=== PATIENT | male | born 2000 | race Caucasian/White ===

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

== ENCOUNTER 2025-11-06 01:52 | Emergency (ER) | payer MEDICAID ==
[~2025-11-06] VITALS: Ht 190.5 cm; Wt 66.6 kg
[~2025-11-06 01:52] MED LIST changes: +FLUO-167 PO; +FOLI1TAB27 PO; +HYDR-3686 PO; -IBUP-1984 PO; +MULT-25 PO; +NALT50TA5 PO; +TRAZ-251 PO; +thiamine tablet PO
--- NOTE | 2025-11-06 02:10 | ELECTROCARDIOGRAPH REPORT ---
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 ANURADHA Rivas Measurements Intervals [place] Rate: 169 P: 51 OR: 98 QRS: 120 QRSD: 102 T: 0 QT: 260 QTc: 436 Interpretive Statements narrow complex tachycardia, ? sinus tachycardia Anterior infarct, acute (LAD) Electronically Signed On 11-15-2025 13:19:[address] ANURADHA Rivas Please click the below link to view image of tracing.
[2025-11-06] MEDS: normal saline 1000ml 1,000 ML IV ONE ×2 (02:38→05:35)
--- NOTE | 2025-11-06 02:42 | RADIOLOGY REPORT ---
CHEST RADIOGRAPH INDICATION: CP TECHNIQUE: Single frontal view of the chest was obtained COMPARISON: CHEST,SINGLE VIEW on DOS: 12/16/20 FINDINGS: Lines and Tubes: None Lungs: Clear Pleura: No effusion. No pneumothorax. Cardiomediastinal contours: Unremarkable Bones: Unremarkable IMPRESSION: 1. No acute disease.
--- NOTE | 2025-11-06 02:48 | Physician Documentation ---
History of Present Illness General Chief Complaint: Syncope Stated Complaint: HEAD S/P FALL Time Seen by MD: 02:10 Primary Medical Doctor: Karely Mode of Arrival: POV History of Present Illness Initial Comments This is a 25-year-old gentleman with a prior history of syncope, history of panic attacks, history of daily marijuana consumption, comes in today for evaluation of syncope that occurred couple of hours prior to arrival while he was at work. He states that he developed a panic attack while in the bathroom at work. He subsequently experienced a syncope. He states it happens to him often especially with the hyperventilation. He normally knows the loss of consciousness is in pitting, however does not recall the prodrome today. He did fall down striking his head. He states that he went home, smoked some weed, and only came here at the insistence of his friend. At the time of my examination he complains of dizziness, headache. Denies any chest pain or difficulty breathing. He is aware that his heart is beating very fast. He states that he is still feels scared and anxious. He uses marijuana, specifically denies use of any sympathomimetics such as methamphetamine or cocaine. Medication Reconciliation Allergies: Coded Allergies: No Known Allergies (Unverified , 04/18/13) Scheduled Fluoxetine HCl (Fluoxetine HCl), 20 MG PO DAILY@2100 Folic Acid* (Folic Acid*), 1 MG PO DAILY Hydroxyzine Hcl* (Atarax*), 50 MG PO TID Multivitamin with Folic Acid (Thera Tablet), 1 EACH PO DAILY Naltrexone Hcl (Naltrexone Hcl), 50 MG PO DAILY Trazodone HCl (Trazodone HCl), 50 MG PO HS [thiamine tablet], 100 MG PO BID Past Medical History Past Medical History: Anxiety, Depression Past Surgical History: noncontributory Alcohol Use: None Drug Use: marijuana Lives with: S/O Lives In: Home Review of Systems ROS 10 point review of systems was performed and unless noted above in HPI is negative for acute process/complaint. Physical Exam Physical Exam Vital Signs: Temperature: 98.3, Source: Oral, Heart Rate: 164, Respiratory Rate: 18, BP: 140/86, Pulse Oximetry: 97, Weight: 66.600 Physical Exam GENERAL: Awake, alert, oriented, GCS 15, no apparent distress, non-toxic appearing, answers questions, follows commands appropriately. HEENT: Atraumatic, normocephalic, pupils equal, extraocular muscles intact, sclerae anicteric, mucus membranes moist, oropharynx is clear, no stridor. NECK: supple, full active range of motion, trachea midline, no thyromegaly, no lymphadenopathy, no JVD. CARDIOVASCULAR: regular rate/rhythm, no murmurs/gallops/rubs, Pulses are 2+ in all extremities and symmetric. Capillary refill less than 2 seconds. PULMONARY: Nonlabored, good air movement ,no respiratory distress, speaking in full sentences, clear to auscultation bilaterally, no wheezing, no ronchi, no rales, no accessory muscle use. GASTROINTESTINAL: Soft, non-tender, non-distended, normal active bowel sounds, no organomegaly, no pulsatile masses, no CVA tenderness. NEUROLOGIC: Lucid with normal mental status. Normal facial symmetry. Moves all extremities symmetrically and with purpose. No truncal ataxia. Speech is fluid without evidence of dysarthria or aphasia, no focal deficits appreciated. MUSCULOSKELETAL: There is full range of motion of all extremities. There is no joint pain or joint swelling or joint erythema. There is no muscle pain or tenderness or swelling. EXTREMITIES: warm, well-perfused, no cyanosis, no clubbing, no edema, no acute deformities. Skin: warm, dry, no rashes or lesions, no jaundice, no petechiae orpurpura. No ecchymosis. PSYCHIATRIC: Normal affect, normal insight, normal concentration. Focused exam: [] Progress Results/Orders Results/Orders Orders - CARLYLE SOLOMON DO Chest,Single View (11/06/25 02:02) Monitor (11/06/25 02:02) Saline Lock (11/06/25 02:02) Oxygen (11/06/25 02:02) Ct Head (11/06/25 02:45) Ct Cervical Spine (11/06/25 02:45) Completed Orders - CARLYLE SOLOMON DO Chest,Single View (11/06/25 02:02) BMP (11/06/25 02:02) PBNP (11/06/25 02:02) Electrocardiogram (11/06/25 02:02) Hs Troponin I W Calculations (11/06/25 02:02) Drug Screen, Urine (11/06/25 02:02) Ethanol (11/06/25 02:02) Lorazepam Inj (Ativan Inj) (11/06/25 02:30) Normal Saline 1000ml (0.9% Sodium Chlori (11/06/25 02:30) Ct Head (11/06/25 02:45) Ct Cervical Spine (11/06/25 02:45) Free T4 (11/06/25 02:20) TSH (11/06/25 02:20) Magnesium Sulf-Water 2g/50ml (Magnesium (11/06/25 04:35) Potassium Bicarb/Cit Acid Tab (K-Lyte Ta (11/06/25 04:35) Potassium Cl 10meq/100ml Bag (Potassium (11/06/25 04:35) Potassium Bicarb/Cit Acid Tab (K-Lyte Ta (11/06/25 04:35) Normal Saline 1000ml (0.9% Sodium Chlori (11/06/25 04:40) Potassium Cl Sr Tablet (K-Dur Tablet) (11/06/25 05:47) Potassium Bicarb/Cit Acid Tab (K-Lyte Ta (11/06/25 06:15) CMP (11/06/25 10:05) Vital Signs 11/06/25 11/06/25 11/06/25 06:06 06:41 07:54 Temp 98.3 Pulse 99 92 Resp 18 14 B/P (MAP) 123/75 (91) 123/83 (96) Pulse Ox 97 99 O2 Flow Rate 0 FiO2 21 Laboratory Tests Test 11/06/25 02:06 11/06/25 02:20 11/06/25 03:30 11/06/25 04:50 Glucometer 135 H CBC Comment Sodium Level 141 Potassium Level 2.7 *L Chloride Level 100 Carbon Dioxide Level 27.6 Anion Gap 13 Blood Urea Nitrogen 8 Creatinine 1.08 Estimated GFR/1.73 m2 85 BUN/Creatinine Ratio 7.4 L Glucose Level 132 H Calcium Level 9.8 Troponin I High Sensitivity < 4 L Troponin I High Sens Percent Delta Troponin I Hi Sens Absolute Change Pro-B-Type Natriuretic Peptide < 30 Albumin 5.0 Thyroid Stimulating Hormone (TSH) 1.18 Free Thyroxine 1.28 Chemistry Comments Ethyl Alcohol Level 62 H White Blood Count 6.9 Red Blood Count 4.91 Hemoglobin 15.5 Hematocrit 44.2 Mean Corpuscular Volume 90.0 Mean Corpuscular Hemoglobin 31.5 H Mean Corpuscular Hemoglobin Concent 35.0 Red Cell Distribution Width 13.2 Platelet Count 211 Mean Platelet Volume 7.7 Neutrophils (%) (Auto) 67.7 Lymphocytes (%) (Auto) 21.6 Monocytes (%) (Auto) 9.0 Eosinophils (%) (Auto) 0.7 Basophils (%) (Auto) 1.0 Neutrophils # (Auto) 4.7 Lymphocytes # (Auto) 1.5 Monocytes # (Auto) 0.6 Eosinophils # (Auto) 0.0 Basophils # (Auto) 0.1 Urine Opiates Screen Negative Urine Methadone Screen Negative Urine Fentanyl Screen Negative Urine Barbiturates Screen Negative Urine Phencyclidine Screen Negative Urine Amphetamines Screen Negative Urine Benzodiazepines Screen Negative Urine Cocaine Screen Negative Urine Cannabinoids Screen Positive Drug Screen Comment Test 11/06/25 10:15 Sodium Level 140 Potassium Level 5.2 H Chloride Level 107 Carbon Dioxide Level 31.8 Anion Gap 1 L Blood Urea Nitrogen 8 Creatinine 0.90 Estimated GFR/1.73 m2 > 90 BUN/Creatinine Ratio 8.9 L Glucose Level 102 Calcium Level 9.2 Total Bilirubin 1.1 H Aspartate Amino Transf (AST/SGOT) 42 H Alanine Aminotransferase (ALT/SGPT) 62 Alkaline Phosphatase 77 Total Protein 8.1 Albumin 4.4 Globulin 3.7 Albumin/Globulin Ratio 1.2 Chemistry Comments EKG/XRAY/CT/US/VASC/MRI EKG : Additional Comment EKG was obtained and interpreted by myself shows sinus tachycardic, rate of 169, short NM, narrow QRS, no QT prolongation, normal axis, no STEMI Medical Decision Making Additional information obtaine: old records Findings Facility Status: ED Holds, [facility] process The plan was discussed with the patient, who demonstrates clear understanding of the plan and is in agreement with the plan unless otherwise noted in the chart. All questions have been answered, all concerns were addressed unless otherwise documented. I was available throughout their ED stay for frequent reassessment and questions. Differential Diagnoses (considered and possible or likely): [Vasovagal versus orthostatic versus less likely malignant arrhythmia syncope, loss of consciousness secondary to hyperventilation, less likely ACS, less likely CHF. Ground level fall, acute traumatic pain, closed head injury, concussion, subdural, subarachnoid, cervical spine fracture or subluxation had also been considerably. Thyrotoxicosis is also in differential diagnosis as well as drug toxidrome, alcohol intoxication. Panic attack and anxiety has been considerably, however they are the diagnosis of rule out in the emergency department] ??Differential Diagnoses (considered and unlikely, not requiring evaluation currently): [Has a no PE risk factors. Wells as one for tachycardia.] MDM Data Please see HPI for the following: Independent Historians and external Records Review. Historian: [Patient] Independent Historians: ?[Record review] Medication Management: [Reviewed medication list] Social History and determinants: [Reviewed] Please see the body of the note for the following: Any independent interpretations of ECG, imaging studies. All vitals signs/haemodynamics, ordered tests were independently reviewed and in terpreted by myself. 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 Initially markedly tachycardic comes significantly improved with fluid resuscitation and antianxiety medication. No evidence of hypotension. No evidence of respiratory distress. CBC is normal without evidence of leukocytosis, anemia, platelet abnormality. Chemistry notable for hypokalemia of 2.7. Normal creatinine. Toxicology positive for alcohol, it is 62, below the legal limit Imaging including head CT, CT C-spine and chest x-ray are unremarkable.] Tests considered but not ordered include: [Echocardiogram can be done on the outpatient basis] Social Determinants of Health Impact: Patient was evaluated in [facility], or [facility] [place] to healthcare due to below par ratio of patient to medical providers. [] Comorbid Conditions Impacting Present Evaluation and Care/Treatment: [History of previous syncope] Management Discussions with other Healthcare Providers: [] Treatment and Disposition Medication Management (Given or considered): [Fluid resuscitation]. See EMR for details Consideration for Hospitalization/Escalation/Deescalation of Care: Admission for observation has been considered, [however the patient is able to tolerate p.o., their symptoms are controlled, they are able to rely on oral medications, and their chief complaint/diagnosis can be managed on outpatient basis.] ?ED Course:?[Potassium was corrected.] ?Shared decision making:?[Patient is hemodynamically stable for discharge home with follow with their primary care provider. [ ] Specific and cautious return precautions provided and discussed with full understanding. Any incidental findings were also discussed and follow up recommendations given. [] All questions answered. Patient/family were able to verbalize back return precautions. Patient/family agree to plan. Copies of imaging and laboratory studies were provided.] Code status:?FULL Please see the full Electronic Medical Record for full details of nursing documentation, medications list, other records of complete past medical history and conditions, vital signs, laboratory studies, and any radiologic study interpretations by radiologists. Portions of this note were completed using [employer] dictation software and as a result there may exist minor errors in spelling. I have reviewed elements of past family and social history and agree as included in note. Differential Diagnosis See body of the main note for differential diagnosis Departure Disposition: 01 HOME / SELF CARE / HOMELESS Impression: Primary Impression: Syncope Additional Impressions: Ground-level fall Acute traumatic pain Closed head injury Alcohol intoxication Hypokalemia Condition: Improved Discharge Instructions: Syncope, Adult Referrals: NO PRIMARY CARE PROVIDER (PCP) Education Educated: Patient Educated regarding: diagnosis, treatment, prognosis, need for follow up Signature Scribe Signature: No scribe Attestation: The note accurately reflects work and decisions made by me.Carlyle Solomon, 11/06/25 02:48 CARLYLE SOLOMON DO Nov 06, 2025 02:48
--- NOTE | 2025-11-06 03:13 | RADIOLOGY REPORT ---
EXAM: CT CT HEAD INDICATION: Syncope with a head strike, LOC, pain TECHNIQUE: CT of the head without intravenous contrast. Radiation Dose : 1. Head: CT Dose: CTDI volume is 60.68 mGy. Dose-length product is 1084.08 mGy*cm The dose indicators for CT are the volume Computed Tomography (CT) Dose Index (CTDIvol) and the Dose Length Product (DLP), and are measured in units of mGy and mGy-cm, respectively. These indicators are not patient dose, but values generated from the CT scanner acquisition factors. The report includes radiation exposure data for exposures received during this examination. COMPARISON: None FINDINGS: There is no evidence of acute intracranial hemorrhage, extra-axial collection, mass effect, midline shift, herniation or hydrocephalus. The ventricles, sulci and cisterns are age appropriate. The maldonado-white differentiation is intact. The visualized paranasal sinuses and mastoid air cells are clear. The surrounding soft tissues and osseous structures are unremarkable. IMPRESSION: 1. No evidence of acute intracranial abnormality. Radiation optimization: All CT scans at this facility use at least one of these dose optimization techniques: automated exposure control mA and/or kV adjustment per patient size (includes targeted exams where dose is matched to clinical indication) or iterative reconstruction.
--- NOTE | 2025-11-06 03:14 | RADIOLOGY REPORT ---
EXAM: CT CT CERVICAL SPINE HISTORY: Syncope with a head strike, LOC, pain COMPARISON: None CTDIvol 18.16 mGy, DLP 471.17 mGy*cm. TECHNIQUE: Multiple axial CT images of the spine were obtained using bone algorithm. Axial and coronal reformatting was done. Bone and soft tissue windows were reviewed. FINDINGS: No CT evidence of definite acute fracture, spinal dislocation, or significant appearing acute subluxation is seen. The visualized paraspinal soft tissues are grossly unremarkable. IMPRESSION: 1. No definite CT evidence of acute fracture or dislocation of the bony cervical spine.
[2025-11-06 03:17] LABS: CREATININE 1.08 MG/DL (0.60-1.10); ETHANOL 62 MG/DL (<10); TOTAL CARBON DIOXIDE 27.6 MMOL/L (24-32); eCRCL 100 ML/MIN; eGFR 85 ML/MIN
[2025-11-06 03:22] LABS: PRO BRAIN NATRIURETIC PEPTIDE < 30 PG/ML (0-125)
[2025-11-06 03:41] LABS: MEAN PLATELET VOLUME 7.7 FL (7.4-10.4); RED CELL DISTRIBUTION WIDTH 13.2 % (11.5-14.5)
[2025-11-06] MEDS ORDERED: potassium bicarbonate/cit acid 25mEq tablet.effervescent PO ONE (04:35)
[2025-11-06] MEDS ORDERED: potassium bicarbonate/cit acid 25mEq tablet.effervescent PO SCH (04:35)
[2025-11-06 05:25] LABS: URINE AMPHETAMINE SCREEN NEGATIVE (Neg); URINE BARBITUATE SCREEN NEGATIVE (Neg); URINE BENZODIAZEPINES SCREEN NEGATIVE (Neg); URINE CANNABINOID SCREEN POSITIVE (Neg); URINE COCAINE SCREEN NEGATIVE (Neg); URINE METHADONE SCREEN NEGATIVE (Neg); URINE OPIATE SCREEN NEGATIVE (Neg); URINE PHENCYCLIDINE SCREEN NEGATIVE (Neg)
[2025-11-06] MEDS: potassium CL 10mEq/100ml bag 100 ML IV SCH (05:36)
[2025-11-06] MEDS: magnesium sulf-water 2g/50mL 50 ML IV ONE (05:54)
[2025-11-06 06:06] VITALS: TEMP 98.3
[2025-11-06] MEDS: potassium Cl 20 mEq SR tablet PO STA (06:11)
[2025-11-06] MEDS: potassium bicarbonate/cit acid 25mEq tablet.effervescent PO ONE (06:41)
[2025-11-06 07:54] VITALS: BP 123/83; PULSE 92; RESP 14; O2SAT 99
[2025-11-06 10:46] LABS: CREATININE 0.90 MG/DL (0.60-1.10); TOTAL CARBON DIOXIDE 31.8 MMOL/L (24-32); eCRCL 120 ML/MIN; eGFR > 90 ML/MIN
== END 2025-11-06 10:56 | disposition home or self-care (01) ==
LOC: ER 01:53
DX: S09.90XA Unspecified injury of head, initial encounter (principal); F10.129 Alcohol abuse with intoxication, unspecified; E87.6 Hypokalemia; F17.200 Nicotine dependence, unspecified, uncomplicated; G89.11 Acute pain due to trauma; F41.9 Anxiety disorder, unspecified; F32.A Depression, unspecified; R06.2 Wheezing; Y90.3 Blood alcohol level of 60-79 mg/100 ml; F12.90 Cannabis use, unspecified, uncomplicated; Z79.899 Other long term (current) drug therapy; W18.30XA Fall on same level, unspecified, initial encounter; Y93.89 Activity, other specified; Y92.89 Other specified places as the place of occurrence of the external cause; Y99.8 Other external cause status
CPT/HCPCS: 36415; 70450; 71045; 72125; 80048; 80053; 80305; 80320; 82948; 83880; 84439; 84443; 84484; 85025; 93005; 96365; 96366; 96368; 96375; 99285; J2060; J3480; J7030